=== PATIENT | female | born 1990 | race Caucasian/White ===

== ENCOUNTER → 2017-07-12 | Outpatient (REF) | payer OTHER ==
[2014-07-10 10:21] VITALS: BMI 28.6
[~2017-07-12] MED LIST: ACE3 PO; ACET-1718 PO; IBU800 PO; IBUP800T37 PO; PNV1TABL92 PO
== END ==
LOC: ZZSENDIN 13:11
PROVIDERS: ATTEND Obstetrics & Gynecology
DX: Z36.89 Encounter for other specified antenatal screening (principal); Z3A.30 30 weeks gestation of pregnancy
CPT/HCPCS: 82950; 85027

== ENCOUNTER → 2017-08-30 | Outpatient (CLI) | payer OTHER ==
[2014-07-10 10:21] VITALS: BMI 28.6
[~2017-08-30] MED LIST changes: +PREN-127 PO
== END ==
LOC: LAB 10:10
PROVIDERS: ATTEND Obstetrics & Gynecology
DX: Z34.83 Encounter for supervision of other normal pregnancy, third trimester (principal)
CPT/HCPCS: 87081

== ENCOUNTER 2017-09-17 21:53 | Inpatient (IN) | payer OTHER ==
[~2017-09-17] VITALS: Ht 167.6 cm; Wt 93.4 kg
[2017-09-17] MEDS ORDERED: ceFAZolin(*) 2GM/D5W 50ML 50 ML IVPB PRN (21:54)
[2017-09-17] MEDS ORDERED: LR(*) 1000 ML BAG 1,000 ML IV PRN (21:54)
[2017-09-17] MEDS ORDERED: FAMOTIDINE(*) 20MG/50ML PREMIX 50 ML IVPB PRN ×2 (21:54→21:55)
[2017-09-17] MEDS ORDERED: fentaNYL CITR 100 MCG/2 ML AMP IVP PRN (21:55)
[2017-09-17] MEDS ORDERED: LIDOCAINE/SOD BICARB 8.4% SYR SC PRN (21:55)
[2017-09-17] MEDS ORDERED: ZOLPIDEM TARTRATE 5 MG TAB PO PRN (21:55)
[2017-09-17] MEDS ORDERED: LIDOCAINE 1% LOCAL 300 MG/30ML INJ PRN (21:55)
[2017-09-17] MEDS ORDERED: CALCIUM CARBONATE 500 MG CHEW PO PRN (21:55)
[2017-09-17] MEDS ORDERED: FLUSH 10 ML SYR IVP PRN (21:55)
[2017-09-17] MEDS ORDERED: ACETAMINOPHEN 500 MG TAB PO PRN (21:55)
[2017-09-17] MEDS ORDERED: MISOPROSTOL 25 MCG CAP PV PRN ×2 (21:55→23:45)
[2017-09-17] MEDS ORDERED: ONDANSETRON 4 MG/2 ML VIAL IVP PRN (21:55)
[2017-09-17] MEDS ORDERED: METOCLOPRAMIDE 10 MG/2 ML SDV IVP PRN (21:55)
[2017-09-17 22:55] LABS: PLATELET COUNT, AUTOMATED 256 K/uL (150-450)
[2017-09-17 23:58] VITALS: BP 114/67
[2017-09-18 01:19] VITALS: Ht 167.6 cm; Wt 93.4 kg
[2017-09-18] MEDS ORDERED: OXYTOCIN 30 UNIT/D5LR 500 ML 500 ML IV PRN ×2 (04:00)
--- NOTE | 2017-09-18 07:44 | History & Physical ---
History of Present Illness EDC per LMP: September 21, 2017 Estimated Gestational Age: 39.4 Chief Complaint Induction History of Present Illness 27yo at 39w4d presents for induction of labor. She was having regular UCx starting at midnight today. Denies VB. +FM. No preeclampsia symptoms. PNR reviewed. uncomplicated. PNC by [facility]. History Patient's Blood Type: O Positive Rubella Status: Immune Group B Strep Screen: Negative Obstetrical History: Hx 2 SVDs Past Medical History: PMH: Depression PSH: [place] tooth Allergies: Coded Allergies: No Known Drug Allergies (Verified , 12/25/09) Social History: No T/E/D Family History: Patient reports no known family medical history. Med Rec Home Meds Reported Medications Vits W-Ca,Fe,Fa(<1MG) ( VITAMINS) 1 Each Tablet, 1 EACH PO DAILY, TAB 08/12/17 Review of Systems Constitutional: No Fever, No Weight Loss, No Weight Gain, No Chills, No Night Sweats, No Other Neurological: No Syncope, No Confusion, No Weakness, No Dizziness, No Slurred Speech, No Other Cardiovascular: No Chest Pain, No Palpitations, No Orthostatic Hypotension, No Other Respiratory: No Shortness of Breath, No Cough, No Wheezing, No Other Gastrointestinal: No Nausea, No Vomiting, No Diarrhea, No Dysphagia, No Constipation, No Early Satiety, No Hematemesis, No Hematochezia, No Melena, No Abdominal Pain, No Other Genitourinary: No Dysuria, No Hematuria, No Urinary Incontinence, No Other Musculoskeletal: No Pain, No Sprain, No Strain, No Impaired Mobility, No Other Psychiatric: No Depression, No Anxiety, No Other Exam General Exam Vital Signs Vital Signs Date Time Temp Pulse Resp B/P (MAP) Pulse Ox O2 Delivery O2 Flow Rate FiO2 09/17/17 23:58 98.4 92 18 114/67 (83) 93 Room Air General Apperance: Alert/Awake/No Acute Distress Neuro: No Gross deficits Eyes: Normal Extraocular Movement & Vison Cardiovascular: Regular Rate and Rhythm Respiratory: No Respiratory Distress, Clear to Auscultation Abdomen: Gravid - Non-Tender : Normal Musculoskeletal: No Weakness/Pain Extremities: No Cyanosis,Clubbing or Edema Integumentary: Skin Intact without Lesions or Rash Psychological: Alert & Oriented X3, Appropriate Mood & Affect Cervical Dialation: 7 Cervical Effacement (%): 90 Cervical Consistency: Soft Cervical Position: Mid Station: -1 Presentation: Vertex Uterine Contractions(Q min): 3 Uterine Contraction Strength: Strong UC Resting Tone: Soft Fetus Feeling Movement?: Yes FHT Category: I Medical Decision Making Data Points Result Diagram: 09/17/17 2240 Pre-Admit Course Medical Record Review: Yes VTE Prophylasis: Adult Deep Vein Thrombosis/Pulmonary: No Pharmacological Contraindicati: Pt at Low Risk for VTE Mechanical Contraindications: Pt at Low Risk for VTE Assessment and Plan Problems: (1) 39 weeks gestation of Assessment & Plan: 27yo at 39w4d presents for induction of labor. She was having regular UCx starting at midnight today. She progressed with cervical change on her own during the first four hours. Pitocin was started, but heart tones did not tolerate well. She is progressing well on her own. AROM with clear fluid. Anticipate . DAJA DENNIS MD September 18, 2017 07:43
[2017-09-18] MEDS ORDERED: HYDROCORTISONE 2.5% CR 30GM TB PR PRN (11:30)
[2017-09-18] MEDS ORDERED: LANOLIN OINT 7 GM TUBE TP PRN (11:30)
[2017-09-18] MEDS ORDERED: BENZOCAINE 20% 60 ML BTL TP PRN (11:30)
[2017-09-18] MEDS ORDERED: MAGNESIUM HYDROXIDE* 30ML UDCP PO PRN (11:30)
[2017-09-18] MEDS ORDERED: GLYCERIN/WITCH HAZEL LEAF 1 PK TP PRN (11:30)
[2017-09-18] MEDS ORDERED: ACETAMINOPHEN 325 MG TAB PO PRN (11:30)
[2017-09-18] MEDS ORDERED: APAP/HYDROCODONE 325/5 TAB PO PRN (11:30)
--- NOTE | 2017-09-18 11:34 | OB Delivery Note ---
Delivery Note Vaginal Delivery Type: Spont. Vaginal Delivery Delivery Date: September 18, 2017 Delivery Time: 11:00 Estimated Gestational Age(wks): 39.4 Labor Stage III (minutes): 5 Delivery Anesthesia: Local Sex: Male Estimated Blood Loss: 200 DAJA DENNIS MD September 18, 2017 11:34
[2017-09-18] MEDS: IBUPROFEN 800 MG TAB PO SCH ×2 (12:01→20:10)
--- NOTE | 2017-09-18 14:32 | DELIVERY NOTE ---
DELIVERY DATE: September 18, 2017 SURGEON: Fadumo Berg MD ANESTHESIA: Local infiltration of 1% lidocaine without epinephrine. PREOPERATIVE DIAGNOSIS Intrauterine at 39 weeks and 4 days presenting for induction of labor. POSTOPERATIVE DIAGNOSES 1. Intrauterine at 39 weeks and 4 days presenting for induction of labor. 2. Delivery of a viable male infant at 1100 hours with weighing 2885g with Apgars of 8 at one minute and 9 at five minutes. PROCEDURE Spontaneous vaginal delivery. EBL 200cc INDICATIONS FOR PROCEDURE This patient is a 27-year-old 3 para 2 who presented at 39 weeks and 4 days for an elective induction of labor, however, upon admission, she was noted to be having regular uterine contractions that were rather uncomfortable. She was able to progress on her own from 3 to 4 cm, at which time Pitocin was started to augment her labor. However, with Pitocin her heart tones revealed recurrent variable decelerations, therefore Pitocin was stopped, and amniotomy was performed with return of clear fluid at 0726 hours, at which time she was 7, 90 and -1. She was able to progress to 9 cm on her own, after which time Pitocin was started at 1 milliunit/min. She was able to progress to complete at 1054 hours, and was prepared for delivery. DESCRIPTION OF PROCEDURE The patient was properly identified, placed in the dorsal lithotomy position and prepped and draped in the usual fashion for a vaginal delivery. She was asked to push, and within one contraction was able to bring the infant's vertex to the perineum. The vertex was delivered in the REMEDIOS position over an intact perineum. The anterior shoulder delivered easily, followed by the posterior shoulder. The remainder of the infant was then easily delivered. The had spontaneous cry and spontaneous movement of all four extremities. The was stimulated and dried, and the oropharynx and nasopharynx were bulb suctioned. The infant was then passed to the mother's abdomen, where nursing personnel was in attendance. After approximately three minutes, the cord was clamped x two and cut by the father of the baby. Cord blood was then obtained and passed off the table. Pitocin was started through the IV fluid to help firm the uterus, and the placenta delivered spontaneously intact at 1105 hours and was passed off the table. Examination of the cervix, vaginal vault and perineum revealed a second-degree midline laceration, which was repaired after infiltration of 6 mL of 1% lidocaine without epinephrine. The laceration was repaired with a 3-0 Vicryl. Hemostasis was ensured. The patient tolerated this procedure well and recovered in Labor and Delivery with her . All sponge and needle counts were correct at the end of this procedure. DUC
[2017-09-18] MEDS ORDERED: LIDOCAINE 1% LOCAL 300 MG/30ML 30 ML ONE (15:01)
[2017-09-18 16:00] VITALS: BP 104/70
[2017-09-18] MEDS ORDERED: LOR5/325 PO (18:36)
[2017-09-18] MEDS ORDERED: IBUP800T37 PO (18:36)
[2017-09-18 19:05] VITALS: BP 105/61
[2017-09-18] MEDS: DOCUSATE CALCIUM 240 MG CAP PO SCH (20:52)
[2017-09-18 23:00] VITALS: BP 107/60
[2017-09-19 03:00] VITALS: BP 105/60
[2017-09-19] MEDS: IBUPROFEN 800 MG TAB PO SCH (04:31)
--- NOTE | 2017-09-19 07:59 | OB/GYN Progress Note ---
OB Subjective Progress Notes Subjective Doing well. Pain controlled with oral medications. Tolerating regular diet. Ambulating. Voiding. Normal lochia. No preeclampsia symptoms. OB Objective Physical Exam Vital Signs Date Time Temp Pulse Resp B/P (MAP) Pulse Ox O2 Delivery O2 Flow Rate FiO2 09/19/17 03:00 98.6 78 16 105/60 (75) Room Air 09/18/17 16:00 95 General Appearance: Alert/Awake/No Acute Distress Neurological: No Gross deficits Eyes: Normal Extraocular Movement & Vison Cardiovascular: Normal Rhythm & Peripheral Pulses, Regular Rate and Rhythm Respiratory: No Respiratory Distress, Clear to Auscultation Abdomen: Soft, Non-Tender, Non-Distended, Fundus Firm Extremities: No Cyanosis,Clubbing or Edema Integumentary: Skin Intact without Lesions or Rash Psychological: Alert & Oriented X3, Appropriate Mood & Affect Result Diagram: 09/17/170 Assessment and Plan Problems: (1) care and examination immediately after delivery Assessment & Plan: PPD#1. Meeting milestones. Desires discharge to home today. Discussed routine expectations. Questions answered. Follow up in clinic in 6wks for check. DAJA DENNIS MD September 19, 2017 07:59
--- NOTE | 2017-09-19 08:00 | OB/GYN Discharge Summary ---
Discharge Summary Reason for Hosp/Final Diag: (1) care and examination immediately after delivery Hospital Course & Plan: PPD#1. Meeting milestones. Desires discharge to home today. Discussed routine expectations. Questions answered. Follow up in clinic in 6wks for check. Lates Vital Signs Vital Signs Date Time Temp Pulse Resp B/P (MAP) Pulse Ox O2 Delivery O2 Flow Rate FiO2 09/19/17 03:00 98.6 78 16 105/60 (75) Room Air 09/18/17 16:00 95 Weight (Pounds): 206 Result Diagram: 09/17/170 Condition: Improved Discharge: Home, Self Intermediate Meds Active Scripts Hydrocodone Bit/Acetaminophen (HYDROCODON-ACETAMINOPHEN 5-325) 1 Each Tablet, 1 EACH PO Q4-6H Y for PAIN, #30 TAB 0 Refills Prov:DAJA BERG MD 09/18/17 Reported Medications Vits W-Ca,Fe,Fa(<1MG) ( VITAMINS) 1 Each Tablet, 1 EACH PO DAILY, TAB 08/12/17 Follow up Referrals: DRIVER TRAINEE - In 6 Weeks @ [facility] with Daja Berg Md Discharge Diet: As Tolerates Discharge Activity: Pelvic Rest DAJA BERG MD September 19, 2017 08:00
[2017-09-19 08:15] VITALS: BP 104/64
[2017-09-19] MEDS: DOCUSATE CALCIUM 240 MG CAP PO SCH (09:49)
[2017-09-19] MEDS ORDERED: MEASLES,MUMP,RUBELLA VAC 0.5ML SUBQ ONE (11:30)
[2017-09-19] MEDS ORDERED: INFLUENZA VIRUS VAC 0.5 ML SYR IM ONLY ONE (11:30)
[2017-09-19] MEDS ORDERED: DIPHTH/TETANUS/ACEL. PERTUSSIS IM ONLY ONE (11:30)
== END 2017-09-19 12:48 | disposition home or self-care (01) | DRG 775 ==
LOC: OB 21:53 → UNDOADMIN 21:53
PROVIDERS: ADMIT Obstetrics & Gynecology; ATTEND Obstetrics & Gynecology
PROC: 10E0XZZ Delivery of Products of Conception, External Approach (ICD-10-PCS; principal; 2017-09-18)
PROC: 0KQM0ZZ Repair Perineum Muscle, Open Approach (ICD-10-PCS; 2017-09-18)
PROC: 10907ZC Drainage of Amniotic Fluid, Therapeutic from Products of Conception, Via Natural or Artificial Opening (ICD-10-PCS; 2017-09-18)
DX: O76 Abnormality in fetal heart rate and rhythm complicating labor and delivery (principal); O70.1 Second degree perineal laceration during delivery; Z37.0 Single live birth; Z3A.39 39 weeks gestation of pregnancy
CPT/HCPCS: 36415; 85025; 86850; 86900; 86901; J2590; J7120

== ENCOUNTER → 2018-05-12 | Outpatient (CLI) | payer OTHER ==
[2017-09-18 01:19] VITALS: BMI 33.2
[~2018-05-12] MED LIST changes: +LOR5/325 PO
[2018-05-12 11:44] LABS: PLATELET COUNT, AUTOMATED 278 K/uL (150-450)
--- NOTE | 2018-05-15 06:38 | RT HOLTER TEST ---
FACILITY: [facility] PATIENT NAME: KELLY VICENTE : [id number] MR: [id number]: [id number] EXAM DATE: ORDERING PHYSICIAN: MIKAL SCHOFIELD TECHNOLOGIST: Tito Hook-up date: 2018-05-12 15:31:00 Duration: 47:59:00 Test Indications: Irregular Heart Beat Medications: N/A [id number] QRS complexes 467 Ventricular ectopics which represent <1 % of total QRS comp. 2 Supraventricular ectopics which represent <1 % of total QRS comp. * Paced QRS complexes which represent % of total QRS comp. VENTRICULAR ECTOPY 462 Isolated 106 Bigeminal Cycles 0 Couplets 1 Runs 5 Beats in Runs 5 Beats LONGEST at 55 BPM at 04:57:20 2018-05-13 5 Beats FASTEST at 55 BPM at 04:57:20 2018-05-13 SUPRAVENTRICULAR ECTOPY 2 Isolated 0 Couplets 0 Runs 0 Beats in Runs * Beats LONGEST at * BPM at :: -- * Beats FASTEST at * BPM at :: -- HEART RATES 47 MIN at 03:34:29 2018-05-14 76 AVG 130 MAX at 01:49:36 2018-05-13 LONGEST RR 1.576 secs at 20:37:29 2018-05-12 S-T LEVELS Channel 1 -12.800 mm MIN at 15:31:00 2018-05-12 -12.800 mm MAX at 15:31:00 2018-05-12 Channel 2 -12.800 mm MIN at 15:31:00 2018-05-12 -12.800 mm MAX at 15:31:00 2018-05-12 Channel 3 -12.800 mm MIN at 15:31:00 2018-05-12 -12.800 mm MAX at 15:31:00 2018-05-12 Sinus rhythym dominates study. Occasional PVC occuring in bigeminy and one run of 5 beats. No other arrythmias noted. Confirmed by Josiah Maldonado ([id number]) on 05/15/2018 6:38:19 AM Referred By: Overread By: Josiah Julien
== END ==
LOC: RESP 11:24
PROVIDERS: ATTEND Nurse Practitioner Primary Care
DX: R00.2 Palpitations (principal)
CPT/HCPCS: 36415; 82040; 82247; 82310; 82374; 82435; 82565; 82947; 84075; 84132; 84155; 84295; 84443; 84450; 84460; 84520; 85025; 93225; 93226